=== PATIENT | female | born 1970 | race Caucasian/White ===

== ENCOUNTER 2022-07-29 14:21 | Outpatient (CLI) | payer OTHER | END 2022-07-29 14:22 | disposition home or self-care (01) | LOC: BURRAD 14:21 | PROVIDERS: ATTEND Family Medicine | DX: S16.1XXA Strain of muscle, fascia and tendon at neck level, initial encounter (principal); M47.812 Spondylosis without myelopathy or radiculopathy, cervical region | CPT/HCPCS: 72040 ==